=== PATIENT | male | born 1955 | race African-American/Black ===

== ENCOUNTER 2020-01-13 09:16 | Inpatient (IN) ==
[2020-01-13 10:25] LABS: Basophils # 0.1 10*3/uL (0.0-0.2); Basophils % 0.8 % (0.0-0.8); Eosinophils % 0.1 % (0.00-10.9); Hematocrit 46.6 VOL% (42.0-52.0); Hemoglobin 15.4 GM/DL (14.0-18.0); Immature Granulocytes % 0.4 %; Immature Granulocytes Absolute 0.04 #; Lymphocytes # 0.9 10*3/uL (1.4-4.0); Lymphocytes % 8.1 % (21.2-54.2); Mean Corpuscular Volume 92.1 FL (87-102); Mean Platelet Volume 9.8 FL (9.6-12.0); Monocytes % 5.9 % (1.7-12.7); Neutrophils % 84.7 % (38.7-73.9); Platelet Count 336 T/CUMM (130-400); Red Blood Count 5.06 MC/CUMM (3.8-5.5); Red Cell Distribution Width 12.9 % (9.3-17.3); White Blood Count 10.6 T/CUMM (4-12)
[2020-01-13 10:41] LABS: Alanine Aminotransferase 27 U/L (16-61); Albumin 3.9 G/DL (3.4-5.0); Alkaline Phosphatase 47 U/L (45-117); Aspartate Amino Transferase 26 U/L (0-37); Blood Urea Nitrogen 14 MG/DL (7-18); Calcium 9.5 MG/DL (8.5-10.1); Estimated Glom Filtration Rate 105 ML/MIN; Glucose 122 MG/DL (74-106); Osmolality,Calculated 274.8 MOS/KG (273-304)
[2020-01-13] MEDS ORDERED: ASPIRIN CHEW 81 MG TABLET PO STA (10:58)
[2020-01-13] MEDS ORDERED: amLODIPine 5 MG TABLET PO STA (10:58)
[2020-01-13 11:17] LABS: Bilirubin,Urine Negative (Negative); Blood, Urine Negative (Negative); Glucose,Urine (UA) Negative (Negative); Hyaline Casts,Urine 1 /LPF (0-3); Ketones,Urine 5 mg/dL (Negative); Mucus,Urine Moderate /LPF (Occasional); Nitrite,Urine Negative (Negative); Protein,Urine 30 MG/DL; RBC,Urine 1 /HPF (0-4); Urine Appearance CLEAR (Clear); WBC,Urine 2 /HPF (0-6)
[2020-01-13 11:18] LABS: Urine Color Yellow (Yellow)
[2020-01-13] MEDS ORDERED: CLOPIDOGREL 75 MG TABLET PO STA (11:37)
[2020-01-13] MEDS ORDERED: ASPIRIN EC 325 MG TABLET PO STA (11:37)
[2020-01-13] MEDS ORDERED: ATORVASTATIN 40 MG TABLET PO STA (11:39)
[2020-01-13] MEDS ORDERED: LORazepam 2 MG/1 ML VIAL IV STA (11:49)
[2020-01-13] MEDS ORDERED: diphenhydrAMINE 50 MG/1 ML VIAL IV STA (12:12)
[2020-01-13] MEDS ORDERED: DOCUSATE SODIUM 100 MG CAPSULE PO PRN (12:13)
[2020-01-13] MEDS ORDERED: SIMETHICONE CHEW 125 MG TABLET PO PRN (12:13)
[2020-01-13] MEDS ORDERED: LACTULOSE 20 GM/30 ML UDCUP PO PRN (12:13)
[2020-01-13] MEDS ORDERED: GLUCAGON 1 MG VIAL IM PRN (12:13)
[2020-01-13] MEDS ORDERED: diphenhydrAMINE CAP 25 MG CAPSULE PO PRN (12:13)
[2020-01-13] MEDS ORDERED: ZALEPLON 5 MG CAPSULE PO PRN (12:13)
[2020-01-13] MEDS ORDERED: ONDANSETRON 4 MG/2 ML VIAL IV PRN (12:13)
[2020-01-13] MEDS ORDERED: ACETAMINOPHEN 325 MG TABLET PO PRN (12:13)
[2020-01-13] MEDS ORDERED: guaiFENesin/DM ER 600-30 MG TABLET PO PRN (12:13)
[2020-01-13] MEDS ORDERED: ALUMINUM/MAGNES/SIMETH MAX STR 30 ML UDCUP PO PRN (12:13)
[2020-01-13] MEDS ORDERED: traZODone 50 MG TABLET PO PRN (12:13)
[2020-01-13] MEDS ORDERED: BISACODYL 5 MG TABLET PO PRN (12:13)
[2020-01-13] MEDS ORDERED: DEXTROSE 50% 25 GM/50 ML VIAL IV PRN (12:13)
[2020-01-13] MEDS ORDERED: diphenhydrAMINE 50 MG/1 ML VIAL ONE (12:23)
[2020-01-13 12:37] LABS: Barbiturates Screen,Urine Negative (Negative); Benzodiazepines Screen,Urine Negative (Negative); Cannabinoid Screen,Urine Negative (Negative); Opiate Screen,Urine Negative (Negative); Phencyclidine Screen,Urine Negative (Negative)
[2020-01-13] MEDS ORDERED: ENOXAPARIN 40 MG/0.4 ML SYRINGE SUBCUT SCH (14:00)
[2020-01-13] MEDS ORDERED: hydroCHLOROthiazide 12.5 MG CAPSULE PO ONE (15:02)
[2020-01-13] MEDS ORDERED: METOPROLOL TARTRATE 5 MG/5 ML VIAL IV ONE (15:03)
[2020-01-13] MEDS ORDERED: hydroCHLOROthiazide 25 MG TABLET ONE (15:07)
[2020-01-13] MEDS: SODIUM CHLORIDE 0.45% 1,000 ML IV SCH (17:51)
[2020-01-13] MEDS ORDERED: carvediloL 6.25 MG TABLET PO SCH (21:00)
[2020-01-13] MEDS: APIXABAN 5 MG TABLET PO SCH (22:03)
[2020-01-14 05:50] LABS: Basophils # 0.1 10*3/uL (0.0-0.2); Basophils % 1.3 % (0.0-0.8); Eosinophils # 0.1 10*3/uL (0.0-0.87); Hematocrit 44.7 VOL% (42.0-52.0); Hemoglobin 14.9 GM/DL (14.0-18.0); Immature Granulocytes % 0.3 %; Immature Granulocytes Absolute 0.03 #; Lymphocytes # 2.1 10*3/uL (1.4-4.0); Lymphocytes % 21.9 % (21.2-54.2); Mean Corpuscular HGB Conc 33.3 GM/DL (32-36); Mean Corpuscular Volume 92.2 FL (87-102); Monocytes % 9.5 % (1.7-12.7); Platelet Count 310 T/CUMM (130-400); Red Blood Count 4.85 MC/CUMM (3.8-5.5); Red Cell Distribution Width 12.6 % (9.3-17.3); White Blood Count 9.7 T/CUMM (4-12)
[2020-01-14 06:11] LABS: Albumin 3.6 G/DL (3.4-5.0); Bilirubin,Total 1.3 MG/DL (0.2-1.0); Calcium 8.7 MG/DL (8.5-10.1); Total Protein 7.2 G/DL (6.4-8.3)
[2020-01-14 06:16] LABS: Risk Ratio 4.62; Thyroid Stimulating Hormone 1.76 uIU/ml (0.358-3.74); VLDL CHOLESTEROL 16.8 MG/DL
[2020-01-14] MEDS: SODIUM CHLORIDE 0.45% 1,000 ML IV SCH (08:24)
[2020-01-14] MEDS: PANTOPRAZOLE 40 MG TABLET PO SCH (08:25)
[2020-01-14] MEDS: APIXABAN 5 MG TABLET PO SCH ×2 (08:27→21:10)
[2020-01-14] MEDS: ASPIRIN EC 325 MG TABLET PO SCH (08:27)
[2020-01-14] MEDS ORDERED: amLODIPine 5 MG TABLET PO SCH (09:00)
[2020-01-14] MEDS ORDERED: hydroCHLOROthiazide 12.5 MG CAPSULE PO SCH (09:00)
[2020-01-14] MEDS ORDERED: CLOPIDOGREL 75 MG TABLET PO SCH (09:00)
[2020-01-14] MEDS: ATORVASTATIN 40 MG TABLET PO SCH (21:10)
[2020-01-15] MEDS: SODIUM CHLORIDE 0.45% 1,000 ML IV SCH (04:38)
[2020-01-15 06:34] LABS: Basophils # 0.1 10*3/uL (0.0-0.2); Basophils % 1.2 % (0.0-0.8); Eosinophils # 0.2 10*3/uL (0.0-0.87); Eosinophils % 2.1 % (0.00-10.9); Hematocrit 45.3 VOL% (42.0-52.0); Hemoglobin 14.9 GM/DL (14.0-18.0); Immature Granulocytes % 0.6 %; Immature Granulocytes Absolute 0.06 #; Lymphocytes % 18.7 % (21.2-54.2); Mean Corpuscular HGB Conc 32.9 GM/DL (32-36); Mean Corpuscular Volume 92.1 FL (87-102); Monocytes % 9.7 % (1.7-12.7); Neutrophils % 67.7 % (38.7-73.9); Platelet Count 313 T/CUMM (130-400); Red Blood Count 4.92 MC/CUMM (3.8-5.5); Red Cell Distribution Width 12.7 % (9.3-17.3); White Blood Count 10.6 T/CUMM (4-12)
[2020-01-15 07:00] LABS: Albumin 3.3 G/DL (3.4-5.0); Bilirubin,Total 1.6 MG/DL (0.2-1.0); Calcium 8.9 MG/DL (8.5-10.1); Osmolality,Calculated 276.7 MOS/KG (273-304); Total Protein 7.2 G/DL (6.4-8.3)
[2020-01-15] MEDS ORDERED: POTASSIUM CHLORIDE 20 MEQ TABLET PO ONE ×2 (08:00→18:00)
[2020-01-15] MEDS: ASPIRIN EC 325 MG TABLET PO SCH (09:09)
[2020-01-15] MEDS: PANTOPRAZOLE 40 MG TABLET PO SCH (09:09)
[2020-01-15] MEDS: APIXABAN 5 MG TABLET PO SCH ×2 (09:09→21:37)
[2020-01-15] MEDS: hydrALAZINE 20 MG/1 ML VIAL IV PRN (12:25)
[2020-01-15] MEDS: ATORVASTATIN 40 MG TABLET PO SCH (21:37)
[2020-01-16] MEDS: SODIUM CHLORIDE 0.45% 1,000 ML IV SCH (00:27)
[2020-01-16 06:40] LABS: Basophils # 0.1 10*3/uL (0.0-0.2); Basophils % 1.5 % (0.0-0.8); Eosinophils # 0.2 10*3/uL (0.0-0.87); Eosinophils % 2.6 % (0.00-10.9); Hematocrit 46.2 VOL% (42.0-52.0); Hemoglobin 15.4 GM/DL (14.0-18.0); Immature Granulocytes % 0.3 %; Immature Granulocytes Absolute 0.03 #; Lymphocytes % 21.6 % (21.2-54.2); Mean Corpuscular HGB Conc 33.3 GM/DL (32-36); Mean Corpuscular Volume 91.3 FL (87-102); Mean Platelet Volume 10.4 FL (9.6-12.0); Monocytes % 8.7 % (1.7-12.7); Neutrophils % 65.3 % (38.7-73.9); Platelet Count 314 T/CUMM (130-400); Red Blood Count 5.06 MC/CUMM (3.8-5.5); Red Cell Distribution Width 12.9 % (9.3-17.3); White Blood Count 9.2 T/CUMM (4-12)
[2020-01-16 06:57] LABS: Albumin 3.5 G/DL (3.4-5.0); Bilirubin,Total 1.9 MG/DL (0.2-1.0); Calcium 9.2 MG/DL (8.5-10.1); Total Protein 7.3 G/DL (6.4-8.3)
[2020-01-16] MEDS: ASPIRIN EC 325 MG TABLET PO SCH (08:27)
[2020-01-16] MEDS: PANTOPRAZOLE 40 MG TABLET PO SCH (08:27)
[2020-01-16] MEDS: APIXABAN 5 MG TABLET PO SCH (08:27)
[2020-01-16] MEDS: hydrALAZINE 20 MG/1 ML VIAL IV PRN (09:50)
[2020-01-16 11:33] VITALS: BP 159/82
== END 2020-01-16 13:50 | disposition swing bed (61) | DRG 66 ==
LOC: N.EDINP 09:16 → N.ED 09:16 → N.3E 14:07
PROVIDERS: ADMIT Internal Medicine; ATTEND Internal Medicine